=== PATIENT | female | born 1980 | race Caucasian/White ===

== ENCOUNTER 2020-10-06 07:43 | Emergency (ER) | payer OTHER ==
[2020-10-06 08:32] LABS: HEMOGLOBIN 17.3 gm/dl (12.3-15.3); RED BLOOD COUNT 5.23 M/UL (4.00-5.10); WHITE BLOOD COUNT 9.7 K/UL (4.5-11.0)
[2020-10-06 09:09] LABS: BUN/CREATININE RATIO 9 (0-10)
== END 2020-10-06 09:50 | disposition other institution (70) ==
LOC: ER1 07:43
PROVIDERS: Emergency Medicine
DX: I63.9 Cerebral infarction, unspecified (principal); E03.9 Hypothyroidism, unspecified; F17.200 Nicotine dependence, unspecified, uncomplicated; Z90.49 Acquired absence of other specified parts of digestive tract; Z88.8 Allergy status to other drugs, medicaments and biological substances; Z91.041 Radiographic dye allergy status
CPT/HCPCS: 70450; 71045; 80053; 82550; 82553; 82962; 83874; 84439; 84443; 84484; 84703; 85025; 85610; 85730; 93005; 99285; J2997